=== PATIENT | female | born 1985 | race Caucasian/White ===

== ENCOUNTER 2017-02-10 09:53 | Emergency (ER) | payer OTHER ==
[2017-02-10] MEDS ORDERED: KETOROLAC TROMETHAMINE 30 MG/ML 1 ML VIAL ONE ×2 (10:33→10:35)
[2017-02-10] MEDS ORDERED: DIPHENHYDRAMINE HCL 50 MG/1 ML VIAL ONE ×2 (10:33→10:35)
[2017-02-10] MEDS ORDERED: METOCLOPRAMIDE HCL 5 MG/ML 2ML VIAL ONE (10:33)
== END 2017-02-10 11:50 | disposition home or self-care (01) ==
LOC: ED 09:53
DX: R51 Headache (principal); J45.909 Unspecified asthma, uncomplicated; F17.210 Nicotine dependence, cigarettes, uncomplicated
CPT/HCPCS: 99283 ×2; 96372 ×3; J1200 ×2; J2765; J1885 ×2